=== PATIENT | female | born 1975 | race Caucasian/White ===

== ENCOUNTER → 2024-09-18 07:22 | Outpatient (REF) | payer OTHER, SELFPAY | LOC: EMG 07:22 | PROVIDERS: ATTENDING PHYSICIAN Internal Medicine Rheumatology; FAMILY PHYSICIAN Family Medicine | DX: M79.7 Fibromyalgia (principal); R20.0 Anesthesia of skin | CPT/HCPCS: 95886; 95909 ==

== ENCOUNTER → 2024-10-22 06:52 | Outpatient (REF) | payer OTHER, SELFPAY | LOC: HWWDC 06:52 | PROVIDERS: ATTENDING PHYSICIAN Obstetrics & Gynecology; FAMILY PHYSICIAN Family Medicine | DX: Z12.31 Encounter for screening mammogram for malignant neoplasm of breast (principal) | CPT/HCPCS: 77063; 77067 ==

== ENCOUNTER 2025-01-02 04:19 | Emergency (ER) | payer OTHER, SELFPAY ==
[2025-01-02 04:38] VITALS: BP 144/88
[2025-01-02 06:10] LABS: % Basophils 0.6 % (0-2); % Eosinophils 3.1 % (0-6); % Immature Granulocytes 0.3 % (0-0.5); % Lymphocytes 19.1 % (20.5-51.1); % Monocytes 11.6 % (1.7-9.3); % Neutrophils 65.3 % (42.2-75.2); Absolute Eosinophils 0.2 10^3/uL (0-0.7); Absolute Lymphocytes 1.3 10^3/uL (1.2-3.4); Absolute Monocytes 0.8 10^3/uL (0.1-0.6); Absolute Neutrophils 4.4 10^3/uL (1.4-6.5); Hematocrit 39.7 % (37.0-47.0); Hemoglobin 12.6 g/dL (12.0-16.0); Mean Corp Hgb Conc. 31.7 g/dL (33.0-37.0); Mean Corpuscular Hgb 26.6 pg (27.0-31.0); Mean Corpuscular Volume 83.8 fL (81.0-99.0); Mean Platelet Volume 9.3 fL (7.4-10.4); Nucleated Red Blood Cells % 0 %; Platelet Count 312 10^3/uL (130-400); Red Blood Cell Count 4.74 10^6/uL (4.20-5.40); Red Cell Dist. Width 13.9 % (11.5-14.5); White Blood Cell Count 6.7 10^3/uL (4.8-10.8)
[2025-01-02 06:24] LABS: ALT (SGPT) 25 U/L (0-35); AST (SGOT) 24 U/L (14-36); Albumin 4.5 g/dl (3.5-5.0); Alkaline Phosphatase 123 U/L (38-126); Blood Urea Nitrogen 11 mg/dl (7-17); Calcium 9.4 mg/dl (8.4-10.2); Carbon Dioxide 28 mmol/L (22-30); Chloride 102 mmol/L (98-107); Glucose 111 mg/dl (70-99); Potassium 4.3 mmol/L (3.5-5.1); Sodium 139 mmol/L (135-145); Total Bilirubin 0.7 mg/dl (0.2-1.3); Total Protein 7.8 g/dl (6.3-8.2); eGFR > 60.00
[2025-01-02 06:25] LABS: HCG, Serum Qualitative Screen Negative
[2025-01-02 06:33] VITALS: BP 123/87
--- NOTE | 2025-01-02 07:27 | ED.GENMED ---
History of Present Illness
General
Chief Complaint: Cough
Source: patient
Exam Limitations: none
Time Seen by Provider: 01/02/25 07:14
History of Present Illness
History of Present Illness:
49-year-old female otherwise healthy presents with 5 days worth of cough and fatigue. She notes sweats and chills without fever initially. She tested negative for COVID and flu and strep. Seen by Was covered initially with levofloxacin
however she did not take it secondary to potential side effects. She was switched to doxycycline patient took 1 dose of this and vomited. She still notes a barking cough. She went to make sure she did not have pneumonia. No other complaints at
this time
Past History
Past History
ED Past Medical History: Psychiatric (Anxiety, depression) and Other (Congenitally small bladder, Calderón-Aidan syndrome, meningitis)
ED Past Surgical History: Cholecystectomy, (X1 for twins) and Urological
Social History
Tobacco: Non-smoker
Alcohol: Occasional
Drug: None
Personal:
Living: with family
Employment: Not employed
Family History
Family History: Other
Phy Exam
Physical Exam
Physical Exam:
General: well appearing female NAD
HEENT: NC/AT, no extudate, no trismus or drooling
Heart: RRR, no murmurs
lungs; coarse bilaterally, slightly ronchorus
Abd: soft, nontender
Ext: no cyanosis or edema
Skin: Warm, no rash
Course
Orders/Labs/Results
Orders:
Orders
01/02/25 04:44
Chest [CR Chest - 2 Views ] Urgent
Comment:
Reason For Exam: cough
01/02/25 04:45
Test Result ONCE
01/02/25 05:54
Complete Blood Count/With Diff Urgent
Comprehensive Metabolic Panel Urgent
HCG, Serum Qualitative Screen Urgent
01/02/25 07:26
Ipratropium/Albuterol Sulfate [Duoneb] 3 ml INH R NOW ONE
Prednisone [Deltasone] 50 mg PO NOW STA
Abnormal Lab Results
01/02/25
05:54
MCH 26.6 L pg
(27.0-31.0)
MCHC 31.7 L g/dL
(33.0-37.0)
Absolute Monos (auto) 0.8 H 10^3/uL
(0.1-0.6)
Lymphocytes % 19.1 L %
(20.5-51.1)
Monocytes % 11.6 H %
(1.7-9.3)
Glucose 111 H mg/dl
(70-99)
01/02/25 05:54
01/02/25 05:54
Vital Signs
Initial and Last Documented VS:
Initial Vital Signs
Temp Pulse Resp BP Pulse Ox
98.9 F 94 20 144/88 98
01/02/25 04:38 01/02/25 04:38 01/02/25 04:38 01/02/25 04:38 01/02/25 04:38
Last Documented Vital Signs
Temp Pulse Resp BP Pulse Ox
98.9 F 69 18 105/74 99
01/02/25 04:38 01/02/25 07:38 01/02/25 07:38 01/02/25 09:00 01/02/25 09:00
MDM/Problems Addressed
Differential Diagnosis Includes:
Persistent cough with occasional shortness of breath with associated fevers and chills. Recent COVID and flu test were negative. Consider viral illness versus bronchitis versus pneumonia
Vital signs are stable not hypoxic denies any chest pain. Do not suspect PE and no risk factors for PE otherwise.
Chest x-ray ordered through triage which I personally visualized. There is no obvious acute finding pending radiology report. DuoNeb and prednisone ordered.
*Critical Care Note
Total Time (30-74mins, 75-104mins- exclusive of procedures): Not Applicable
Update Note
Update Note:
Patient feeling better after nebulizer. Chest x-ray officially read by radiology which is negative for acute finding. Suspect acute bronchitis. Will continue with Zithromax prednisone and albuterol. Stable for discharge home
ED Attending Note
-
Portions of this chart may have been created with voice recognition software.� Occasional wrong word or��sound alike� substitutions may have occurred due to the inherent limitations of voice recognition software.
Discharge Plan
Departure
Patient Disposition: Home (Routine Discharge)
Date of Disposition: 01/02/25
Time of Disposition: 09:21
Patient with high blood pressure during this ER visit?: No
Discharge Problem:
Acute bronchitis
Instructions: Acute Bronchitis, Adult (DC)
Prescriptions:
New
prednisone 20 mg tablet
40 mg PO DAILY 5 Days Qty: 10 0RF
albuterol sulfate 90 mcg/actuation aerosol powdr breath activated
1 inh inhalation Q4H PRN (Reason: shortness of breath) Qty: 1 0RF
azithromycin [Zithromax Z-Hany] 250 mg tablet
250 mg PO DAILY Qty: 6 0RF
No Action
epinephrine [EpiPen] 0.3 MG/0.3/SYRINGE auto-injector
0.3 mg IM ONCE Qty: 1 0RF
Rx Instructions:
use for severe allergic reaction
[id number]-weqegevyojxla-obdl [Fioricet] 50-300-40 mg capsule
1 cap PO Q8H PRN (Reason: Pain) Qty: 14 0RF
Referrals:
Cameron Sutton DO [Family Provider] -
Activity Restrictions/Additional Instructions:
Use antibiotic prednisone and inhaler as directed. Return here for worsening symptoms. Follow-up with your doctor otherwise
Interventions
Interventions:
*Risk Screen - Suicide Last Done: 01/02/25 04:38
*General Assessment Last Done: 01/02/25 04:38
*Neglect/Abuse Screening Last Done: 01/02/25 04:38
ED- Fall Risk Assessment Last Done: 01/02/25 07:38
*ED COVID-19 Vaccine History Last Done: 01/02/25 04:38
ED- Pulmonary Assessment Last Done: 01/02/25 07:38
Discharge Date and Time
Print Language: AFGHAN
[2025-01-02 07:28] VITALS: BP 114/54
[2025-01-02] MEDS: DUONEB 3 ML INH (07:33)
[2025-01-02] MEDS: DELTASONE 50 MG PO (07:33)
[2025-01-02 07:38] VITALS: BP 114/65
[2025-01-02 08:00] VITALS: BP 110/62
[2025-01-02 09:00] VITALS: BP 105/74
== END 2025-01-02 09:49 | disposition home or self-care (01) ==
LOC: EMR 04:19
PROVIDERS: Emergency Medicine; EMERGENCY PHYSICIAN Emergency Medicine; FAMILY PHYSICIAN Family Medicine
DX: J20.9 Acute bronchitis, unspecified (principal); Z90.49 Acquired absence of other specified parts of digestive tract
CPT/HCPCS: 94640; 99284; 71046; 80053; 84703; 85025

== ENCOUNTER 2025-04-10 13:36 | Emergency (ER) | payer SELFPAY ==
[2025-04-10 13:43] VITALS: BP 146/83
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
[2025-04-10 18:14] VITALS: BP 135/78
== END 2025-04-10 18:15 | disposition home or self-care (01) ==
LOC: EMR 13:36
PROVIDERS: EMERGENCY PHYSICIAN Emergency Medicine; FAMILY PHYSICIAN Family Medicine
DX: S16.1XXA Strain of muscle, fascia and tendon at neck level, initial encounter (principal); V49.40XA Driver injured in collision with unspecified motor vehicles in traffic accident, initial encounter; Y92.410 Unspecified street and highway as the place of occurrence of the external cause; Z90.49 Acquired absence of other specified parts of digestive tract
CPT/HCPCS: 99284; 72125